=== PATIENT | male | born 1950 | race Caucasian/White ===

== ENCOUNTER 2019-06-01 08:59 | Outpatient (CLI) | payer MEDICARE ==
[2019-06-01] MEDS ORDERED: ISOVUE-370 76%-LOCM 1 ML ONE (10:34)
--- NOTE | 2019-06-01 10:49 | CT ---
ABDOMEN CT WITH AND WITHOUT CONTRAST PELVIC CT WITH AND WITHOUT CONTRAST: Date: 06/01/19 HISTORY: Microscopic hematuria. Abdominal pain. FINDINGS: ABDOMEN CT: Lung bases demonstrate minimal atelectatic changes. Normal heart size. No significant pericardial flu id. Visualized aorta is normal caliber. No periaortic fat stranding. Surgically absent gallbladder. P ortal vein is patent. There are multiple hypodensities in the liver. Some of the hypodensities are too small to characteriz e. There is a hypodensity in the left hepatic lobe measuring 1.8 cm, compatible with a hepatic cyst. Spleen, pancreas, and adrenal glands have appropriate attenuation and enhancement. No gastrohepatic, retrocrural, or periportal lymphadenopathy. No mesenteric mass, lymphadenopathy, free air, or free fl uid. Bilaterally, no hydronephrosis or significant perinephric fat stranding. There appears to be a cortic al based calcification in the mid pole of the right kidney measuring approximately 1.1 cm. There is s ymmetric enhancement of the kidneys. There is a subcentimeter hypodensity in the mid right renal terry ex measuring 0.9 cm. Lesion is too small to characterize, but is statistically favored to be cyst. Ad ditional subcentimeter hypodensity in the lower pole of the right kidney, lower pole of left kidney, and mid pole of left kidney cannot be further characterized, but are statistically favored to be cyst s. There is a cyst emanating from the mid pole of the left kidney measuring 3.3 x 2.4 cm. There is symmetric excretion of contrast. There is no filling defect in either intra or extrarenal co llecting system. PELVIC CT: No mass, lymphadenopathy, free air, or free fluid. Mild mass effect upon the floor of the urinary adrien dder due to prostatic hypertrophy. Contrast opacifies the dependent portion of the urinary bladder. N o filling defect. There are no lytic or blastic lesions in the osseous structures. End plate sclerosis at L2-L3 and L4-L5 likely on the basis of degenerative change. Bilateral pars def ects at L5 without associated spondylolisthesis. IMPRESSION: 1. Bilateral renal cortical hypodensities, some of which are too small to characterize. There does a ppear to be a cyst emanating from the left renal cortex. 2. Nonobstructing calculus in the right kidney which may be parenchymal in origin. Bilaterally, no o bstructive uropathy. POS: DARREL
== END 2019-06-01 09:00 | disposition home or self-care (01) ==
LOC: BICCT 08:59
PROVIDERS: ATTEND Urology
DX: R31.29 Other microscopic hematuria (principal); R10.9 Unspecified abdominal pain; N20.0 Calculus of kidney; N28.1 Cyst of kidney, acquired; R93.421 Abnormal radiologic findings on diagnostic imaging of right kidney; R93.422 Abnormal radiologic findings on diagnostic imaging of left kidney
CPT/HCPCS: 74178; 82565; Q9966

== ENCOUNTER 2023-12-26 11:26 | Day surgery (SDC) | payer MEDICARE ==
[2023-12-25 14:23] VITALS: BMI 22.4
[2023-12-26] MEDS ORDERED: Midazolam HCl 2 mg/2 ml Vial ONE (12:26)
[2023-12-26] MEDS ORDERED: PROPOFOL 200 MG/20 ML VIAL ONE (12:45)
== END 2023-12-26 14:31 | disposition home or self-care (01) ==
LOC: MRI 11:26
PROVIDERS: ATTEND Neurological Surgery
DX: M48.062 Spinal stenosis, lumbar region with neurogenic claudication (principal); H26.9 Unspecified cataract; Z98.42 Cataract extraction status, left eye; Z90.49 Acquired absence of other specified parts of digestive tract; Z79.899 Other long term (current) drug therapy; F40.240 Claustrophobia; I10 Essential (primary) hypertension
CPT/HCPCS: 72148; J2250